=== PATIENT | female | born 1965 | race Caucasian/White ===

== ENCOUNTER 2016-05-07 21:14 | Inpatient (IN) | payer BC ==
[~2016-05-07] VITALS: Ht 160 cm; Wt 69.0 kg
[2016-05-07 02:40] VITALS: BP 102/69
[~2016-05-07 21:14] MED LIST: CLON0.5T PO; LEVO25TA2 PO; METF500T4 PO; METH20TA PO; OXYB5TAB7 PO; SIMV20TA3 PO
[2016-05-07] MEDS ORDERED: FENTANYL PF 100 MCG/2 ML VIAL. IV PRN (22:30)
[2016-05-07 22:33] LABS: BASO # 0.2 x10^3/uL (0.0-0.2); BASO % 1 % (0-3); EOS % 2 % (0-3); HEMATOCRIT 34.8 % (36.0-47.0); HEMOGLOBIN 11.4 g/dL (12.0-15.5); LYMPH # 4.3 x10^3/uL (1.0-4.8); LYMPH % 35 % (24-48); MEAN CORPUSCULAR HEMOGLOBIN 29 pg (25-35); MEAN CORPUSCULAR HGB CONC 33 g/dL (31-37); MEAN CORPUSCULAR VOLUME 87 fL (79-100); MONO % 6 % (0-9); NEUT % 56 % (31-73); PLATELET COUNT 351 x10^3/uL (140-400); RED BLOOD COUNT 3.99 x10^6/uL (3.50-5.40); RED CELL DISTRIBUTION WIDTH 15.3 % (11.5-14.5); WHITE BLOOD COUNT 12.4 x10^3/uL (4.0-11.0)
--- NOTE | 2016-05-07 22:39 | PHYS DOC ---
Past Medical History Past Medical History: Bronchitis, High Cholesterol, Hypothyroid Past Surgical History: Cholecystectomy, Hysterectomy Additional Past Surgical Histo: 3 BREAST LUMPS REMOVED, DEVIATED SEPTUM REPAIR , KNEE SURGERY Additional Information: PPD Alcohol Use: None Drug Use: None Adult General Chief Complaint Chief Complaint: CHEST PAIN HPI HPI Patient is a 50 year old female who presents with complaint of chest pain. Patient states that her symptoms started approximately 1-1/2 hours prior to arrival. Patient states that 2 days ago she had an episode of substernal chest pain that was atypical from her normal GERD symptoms. Patient states that the pain was sharp and came on at rest. The patient states that the pain resolved spontaneously but she did take an enteric-coated aspirin at that time. The patient states that she started having sudden onset of lightheadedness and dizziness approximately 1.5 hours prior to arrival. The patient states that this is accompanied by shortness of breath, nausea, and diaphoresis. Patient states that she developed pain in the middle of her shoulder blades that radiates now into her chest. The patient states that her symptoms are still present at this time. The patient has history of hypercholesterolemia, borderline type 2 diabetes mellitus, and significant family history for coronary artery disease. Patient also states that she has history of tobacco use with over 20 pack years reported. Patient has not had any recent illnesses or fever. Patient states that her pain has improved but is still present at this time. Patient states that she does not know what number to give her pain but that it was severe earlier and better at this time. Review of Systems Review of Systems Constitutional: Diaphoresis, Denies fever or chills [] Eyes: Denies change in visual acuity, redness, or eye pain [] HENT: Denies nasal congestion or sore throat [] Respiratory: Shortness of breath [] Cardiovascular: Chest pain [] GI: Denies abdominal pain, nausea, vomiting, bloody stools or diarrhea [] : Denies dysuria or hematuria [] Musculoskeletal: Denies back pain or joint pain [] Integument: Denies rash or skin lesions [] Neurologic: Denies headache, focal weakness or sensory changes [] Current Medications Current Medications Current Medications Medications (Trade) Dose Ordered Sig/Erbecca Start Time Stop Time Status Last Admin Dose Admin Aspirin (Children'S Aspirin) 243 mg 1X ONCE 05/07/16 23:00 05/07/16 23:01 DC 05/07/16 22:50 243 MG Fentanyl Citrate 50 mcg 50 mcg PRN Q15MIN PRN 05/07/16 22:30 05/08/16 22:29 Multi-Ingredient Mouthwash/Gargle (Gi Cocktail Single Dose) 15 ml 1X ONCE 05/07/16 23:00 05/07/16 23:01 DC 05/07/16 22:49 15 ML Ondansetron HCl (Zofran) 4 mg 1X ONCE 05/07/16 23:00 05/07/16 23:01 DC Sodium Chloride (Iv Sodium Chloride 0.9% 1000ml Bag) 1,000 ml @ 1,000 mls/hr Q1H 05/07/16 23:00 05/07/16 23:59 DC 05/07/16 22:49 1,000 MLS/HR Allergies Allergies Allergies Coded Allergies Type Severity Reaction Last Updated Verified aspirin Allergy Intermediate NOSEBLEED 05/07/16 Yes Physical Exam Physical Exam Constitutional: Well developed, well nourished, no acute distress, non-toxic appearance. [] HENT: Normocephalic, atraumatic, bilateral external ears normal, oropharynx moist, no oral exudates, nose normal. [] Eyes: PERRLA, EOMI, conjunctiva normal, no discharge. [] Neck: Normal range of motion, no tenderness, supple, no stridor. [] Cardiovascular:Heart rate regular rhythm, no murmur [] Lungs & Thorax: Bilateral breath sounds clear to auscultation [] Abdomen: Bowel sounds normal, soft, no tenderness, no masses, no pulsatile masses. [] Skin: Warm, dry, no erythema, no rash. [] Back: No tenderness, no CVA tenderness. [] Extremities: No tenderness, no cyanosis, no clubbing, ROM intact, no edema. [] Neurologic: Alert and oriented X 3, normal motor function, normal sensory function, no focal deficits noted. [] Current Patient Data Vital Signs Vital Signs Date Time Temp Pulse Resp B/P Pulse Ox O2 Delivery O2 Flow Rate FiO2 05/07/16 21:20 97.6 79 20 97/63 100 Room Air 97.6 Lab Values Laboratory Tests Test 05/07/16 21:30 White Blood Count 12.4x10^3/uL (4.0-11.0) H Red Blood Count 3.99x10^6/uL (3.50-5.40) Hemoglobin 11.4g/dL (12.0-15.5) L Hematocrit 34.8% (36.0-47.0) L Mean Corpuscular Volume 87fL (79-100) Mean Corpuscular Hemoglobin 29pg (25-35) Mean Corpuscular Hemoglobin Concent 33g/dL (31-37) Red Cell Distribution Width 15.3% (11.5-14.5) H Platelet Count 351x10^3/uL (140-400) Neutrophils (%) (Auto) 56% (31-73) Lymphocytes (%) (Auto) 35% (24-48) Monocytes (%) (Auto) 6% (0-9) Eosinophils (%) (Auto) 2% (0-3) Basophils (%) (Auto) 1% (0-3) Neutrophils # (Auto) 6.9x10^3uL (1.8-7.7) Lymphocytes # (Auto) 4.3x10^3/uL (1.0-4.8) Monocytes # (Auto) 0.7x10^3/uL (0.0-1.1) Eosinophils # (Auto) 0.3x10^3/uL (0.0-0.7) Basophils # (Auto) 0.2x10^3/uL (0.0-0.2) Sodium Level 134mmol/L (136-145) L Potassium Level 3.6mmol/L (3.5-5.1) Chloride Level 98mmol/L (98-107) Carbon Dioxide Level 22mmol/L (21-32) Anion Gap 14 (6-14) Blood Urea Nitrogen 18mg/dL (7-20) Creatinine 1.2mg/dL (0.6-1.0) H Estimated GFR (Cockcroft-Gault) 47.6 Glucose Level 150mg/dL (70-99) H Calcium Level 8.9mg/dL (8.5-10.1) Magnesium Level 1.3mg/dL (1.8-2.4) L Total Bilirubin 0.2mg/dL (0.2-1.0) Direct Bilirubin < 0.1mg/dL (0.0-0.2) Aspartate Amino Transferase (AST) 18U/L (15-37) Alanine Aminotransferase (ALT) 15U/L (14-59) Alkaline Phosphatase 72U/L (46-116) Creatine Kinase 51U/L (26-192) Creatine Kinase MB (Mass) < 0.5ng/mL (0.0-3.6) Creatine Kinase MB Relative Index % (0-4) Troponin I Quantitative < 0.017ng/mL (0.000-0.055) BX-Ykx-Y-Type Natriuretic Peptide 86pg/mL (0-124) Total Protein 7.3g/dL (6.4-8.2) Albumin 3.5g/dL (3.4-5.0) Lipase 197U/L (73-393) Laboratory Tests 05/07/16 21:30 Laboratory Tests 05/07/16 21:30 EKG EKG Interpreted by me: Heart rate 71, sinus rhythm, normal intervals, normal axis, no acute ST/T-wave abnormalities present [] Radiology/Procedures Radiology/Procedures One view AP chest x-ray interpreted by me: No infiltrates, no effusions, normal cardiac silhouette [] Course & Med Decision Making Course & Med Decision Making Pertinent Labs and Imaging studies reviewed. (See chart for details) Patient's troponin was negative. The patient has a JEISON score of 3. Patient treated with aspirin and GI cocktail. The patient will need admission to the hospital for rule out of myocardial infarction. I spoke with Dr. Pierce who accepted care patient in hospital. Dragon Disclaimer Dragon Disclaimer This electronic medical record was generated, in whole or in part, using a voice recognition dictation system. Departure Departure Impression: Primary Impression: Chest pain Additional Impressions: Hyperlipidemia History of tobacco use Family history of myocardial infarction Disposition: ADMITTED INPATIENT Admitting Physician: Greg Pierce Condition: STABLE Referrals: BORIS HOLDER APRN (PCP) Problem Qualifiers Primary Impression: Chest pain Chest pain type: unspecified Qualified Code: R07.9 - Chest pain, unspecified Additional Impressions: Hyperlipidemia Hyperlipidemia type: unspecified Qualified Code: E78.5 - Hyperlipidemia, unspecified KARLO PETERSEN MD May 07, 2016 22:39
[2016-05-07 22:43] LABS: ANION GAP 14 (6-14); BLOOD UREA NITROGEN 18 mg/dL (7-20); CALCIUM 8.9 mg/dL (8.5-10.1); CARBON DIOXIDE 22 mmol/L (21-32); CHLORIDE 98 mmol/L (98-107); CREATININE 1.2 mg/dL (0.6-1.0); GFR 47.6; GLUCOSE 150 mg/dL (70-99); POTASSIUM 3.6 mmol/L (3.5-5.1); SODIUM 134 mmol/L (136-145)
[2016-05-07 22:49] LABS: ALBUMIN 3.5 g/dL (3.4-5.0); ALK PHOS 72 U/L (46-116); ALT (SGPT) 15 U/L (14-59); AST (SGOT) 18 U/L (15-37); DIRECT BILIRUBIN < 0.1 mg/dL (0.0-0.2); MAGNESIUM 1.3 mg/dL (1.8-2.4); TOTAL BILIRUBIN 0.2 mg/dL (0.2-1.0); TOTAL PROTEIN 7.3 g/dL (6.4-8.2)
[2016-05-07 22:59] LABS: CKMB MASS < 0.5 ng/mL (0.0-3.6); CREATINE KINASE 51 U/L (26-192)
[2016-05-07] MEDS ORDERED: ONDANSETRON PF 4 MG/2 ML VIAL. IV ONE (23:00)
[2016-05-07] MEDS ORDERED: IV NORMAL SALINE 1000ML BAG 1,000 ML IV SCH (23:00)
[2016-05-07] MEDS ORDERED: LIDO:MAALOX:DONNATAL 1:1:1 15 ML SINGLE DOSE SWSW ONE (23:00)
[2016-05-07] MEDS ORDERED: ASPIRIN 81 MG TAB.CHEW PO ONE (23:00)
[2016-05-08] VITALS (7 sets, daily range): BP systolic 97–125; BP diastolic 56–78
[2016-05-08] MEDS ORDERED: FENTANYL PF 100 MCG/2 ML VIAL. IV PRN (00:15)
[2016-05-08] MEDS ORDERED: ONDANSETRON PF 4 MG/2 ML VIAL. IV PRN (00:15)
[2016-05-08] MEDS: IV NORMAL SALINE 1000ML BAG 1,000 ML IV SCH ×3 (05:51→20:19)
--- NOTE | 2016-05-08 06:41 | EKG ---
[facility] [address] [place] [address] Test Date: 2016-05-07 Test Time: 21:25:33 Pat Name: SAIDA POPE Department: Room: 4 Gender: F Senior [employer] Developer: : 1965 Requested By: KARLO PETERSEN Order Number: [id number] Reading MD: Joaquina Ramirze Measurements Intervals Farina Rate: 71 P: 40 SC: 150 QRS: 36 QRSD: 98 T: 26 QT: 402 QTc: 442 Interpretive Statements SINUS RHYTHM NORMAL EKG RI6.01 Unconfirmed report No previous ECG available for comparison Electronically Signed On 05-13-2016 14:31:08 TECHNICAL DIRECTOR by Joaquina Ramirez
--- NOTE | 2016-05-08 08:05 | RAD ---
Indication chest pain. A single view the chest was obtained. No prior imaging of the chest is available. The heart size is normal. The lungs are clear. Pulmonary vasculature is normal. An acute finding in the chest is not apparent. IMPRESSION: No acute finding apparent in the chest
--- NOTE | 2016-05-08 09:04 | PDOC2 ---
CARDIAC CONSULT DATE OF CONSULT Date of Consult DATE: 05/08/16 TIME: 08:57 REASON FOR CONSULT Reason for Consult: Chest pain REFERRING PHYSICIAN Referring Physician: Kevon SOURCE Source: Chart review, Patient HISTORY OF PRESENT ILLNESS HISTORY OF PRESENT ILLNESS This is a pleasant 50 yo female admitted for complains of chest pain and dizziness. Reports that in the last 3 months she has been having occasional achy chest pain and thinking it was her GERD. Last night she started having mid back pain between her shoulder blades then went to her midchest, non radiating and this occurred at rest, achy in consistency lasting about an hour. During that same time she was feeling diaphoretic and clammy and thought her BG was low but it was 137. She also was having FERRELL which started to her left parietal then moved to occiput then to her crown. She was positive for muffled hearing and blurred vision. Her friends told her that she was slurring her speech as well. She was also nauseated at that time but no vomiting. Denies any SOA or MORRIS. Denies any past CAD but her parents are significant for it. She does however continues to smoke tobacco and currently takes premarin weekly as she is trying to wean herself of it. Denies daily heartburn. 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 Denies any excessive caffeinated beverages and no recent long distance travels. Denies any VTE, syncope, nor CVA. PAST MEDICAL HISTORY Cardiovascular: Hyperlipidemia, Other ("skip beats") Pulmonary: Asthma CENTRAL NERVOUS SYSTEM: Other (FLOORING MECHANIC hypersomnia (on ritalin)) GI: GERD (recent EGD/colonoscopy 10/2015 normal per pt. ) Heme/Onc: Other (ITP as a child causing epistaxis with last noted when she was 5 yo) Hepatobiliary: No pertinent hx Psych: No pertinent hx Musculoskeletal: low back pain, Osteoarthritis, Other (HRT) Infectious disease: No pertinent hx ENT: Allergic Rhinitis Renal/: Urinary Incontinence Endocrine: Diabetes (2), Hypothyroidism Dermatology: No pertinent hx PAST SURGICAL HISTORY Past Surgical History: Arthroscopy (right knee), Cholecystectomy (laparoscopic) , Hysterectomy (partial; uterine ablation; wisdom tooth extraction; eye surgery) , Other (right breast lump removal; deviated septum repair) FAMILY HISTORY Family History: Coronary Artery Disease (mother and father), Heart Disease ( mother and father) SOCIAL HISTORY Smoke: 1 pack per day ALCOHOL: none Drugs: None Lives: with Family CURRENT MEDICATIONS CURRENT MEDICATIONS Current Medications Medications (Trade) Dose Ordered Sig/Rebecca Route PRN Reason Start Time Stop Time Status Last Admin Dose Admin Aspirin 243 mg 243 mg 1X ONCE PO 05/07/16 23:00 05/07/16 23:01 DC 05/07/16 22:50 Sodium Chloride (Iv Sodium Chloride 0.9% 1000ml Bag) 1,000 ml @ 1,000 mls/hr Q1H IV 05/07/16 23:00 05/07/16 23:59 DC 05/07/16 22:49 Multi-Ingredient Mouthwash/Gargle 15 ml 15 ml 1X ONCE SWSW 05/07/16 23:00 05/07/16 23:01 DC 05/07/16 22:49 Sodium Chloride (Iv Sodium Chloride 0.9% 1000ml Bag) 1,000 ml @ 100 mls/hr Q10H IV 05/08/16 00:07 05/09/16 00:06 05/08/16 05:51 ROS Review of System 14 point ROS evaluated with pertinent positives noted per HPI PHYSICAL EXAM General: Alert, Oriented X3, Cooperative, No acute distress HEENT: Atraumatic, Mucous membr. moist/pink Heart: Regular rate, Normal S1, Normal S2, Other (2/6 systolic murmur to DIMAS border) Abdomen: Soft, No tenderness Extremities: No cyanosis, No edema, Normal pulses Skin: No breakdown, No significant lesion Neuro: Normal speech, Sensation intact Psych/Mental Status: Mental status NL, Mood NL MUSCULOSKELETAL: Osteoarthritic changes both hands VITALS VITALS Vital Signs Date Time Temp Pulse Resp B/P Pulse Ox O2 Delivery O2 Flow Rate FiO2 05/08/16 07:00 97.9 69 18 99/56 97 Room Air 97.9 LABS Lab: Laboratory Tests Test 05/07/16 21:30 05/08/16 06:31 White Blood Count 12.4x10^3/uL (4.0-11.0) Red Blood Count 3.99x10^6/uL (3.50-5.40) Hemoglobin 11.4g/dL (12.0-15.5) Hematocrit 34.8% (36.0-47.0) Mean Corpuscular Volume 87fL (79-100) Mean Corpuscular Hemoglobin 29pg (25-35) Mean Corpuscular Hemoglobin Concent 33g/dL (31-37) Red Cell Distribution Width 15.3% (11.5-14.5) Platelet Count 351x10^3/uL (140-400) Neutrophils (%) (Auto) 56% (31-73) Lymphocytes (%) (Auto) 35% (24-48) Monocytes (%) (Auto) 6% (0-9) Eosinophils (%) (Auto) 2% (0-3) Basophils (%) (Auto) 1% (0-3) Neutrophils # (Auto) 6.9x10^3uL (1.8-7.7) Lymphocytes # (Auto) 4.3x10^3/uL (1.0-4.8) Monocytes # (Auto) 0.7x10^3/uL (0.0-1.1) Eosinophils # (Auto) 0.3x10^3/uL (0.0-0.7) Basophils # (Auto) 0.2x10^3/uL (0.0-0.2) Sodium Level 134mmol/L (136-145) Potassium Level 3.6mmol/L (3.5-5.1) Chloride Level 98mmol/L (98-107) Carbon Dioxide Level 22mmol/L (21-32) Anion Gap 14 (6-14) Blood Urea Nitrogen 18mg/dL (7-20) Creatinine 1.2mg/dL (0.6-1.0) Estimated GFR (Cockcroft-Gault) 47.6 Glucose Level 150mg/dL (70-99) Calcium Level 8.9mg/dL (8.5-10.1) Magnesium Level 1.3mg/dL (1.8-2.4) Total Bilirubin 0.2mg/dL (0.2-1.0) Direct Bilirubin < 0.1mg/dL (0.0-0.2) Aspartate Amino Transf (AST/SGOT) 18U/L (15-37) Alanine Aminotransferase (ALT/SGPT) 15U/L (14-59) Alkaline Phosphatase 72U/L (46-116) Creatine Kinase 51U/L (26-192) Creatine Kinase MB (Mass) < 0.5ng/mL (0.0-3.6) Creatine Kinase MB Relative Index % (0-4) Troponin I Quantitative < 0.017ng/mL (0.000-0.055) < 0.017ng/mL (0.000-0.055) LE-Bqn-Z-Type Natriuretic Peptide 86pg/mL (0-124) Total Protein 7.3g/dL (6.4-8.2) Albumin 3.5g/dL (3.4-5.0) Lipase 197U/L (73-393) ASSESSMENT/PLAN ASSESSMENT/PLAN 1. Chest pain: 2. HLP 3. Presyncope/FERRELL with TIA features 4. HRT with tobaccoism 5. FLOORING MECHANIC hypersomnia 6. Hx of ITP as a child, no further recurrence since 5 yo 7. Hypothyroidism 8. Hypomagnesemia 9. Prerenal azotemia Recommendation 1. Continue with IVF, replace Mg per repeat level. Repeat BMP 2. MPI/TTE today 3. TSH, lipid panel. 4. Pretest CAD probability 24%. Possible vasopasm is possible with ritalin use. Hold for now. 5. Noncontrast Head CT 6. Consider eliminating HRT and consider SSRI given her tobaccoism 7. smoking cessation, with continued secondary prevention measures. Problems: CATHLEEN RICARDO APRN May 08, 2016 09:04
[2016-05-08 09:44] LABS: CALCIUM 8.4 mg/dL (8.5-10.1); CREATININE 0.9 mg/dL (0.6-1.0); GFR 66.3; MAGNESIUM 1.5 mg/dL (1.8-2.4); POTASSIUM 4.2 mmol/L (3.5-5.1)
[2016-05-08 09:57] LABS: CHOLESTEROL/HDL RATIO 3.9
[2016-05-08] MEDS ORDERED: REGADENOSON 0.4 MG/5 ML DISP.SYRIN. IV ONE (10:45)
--- NOTE | 2016-05-08 11:14 | RAD ---
Indication headache and slurred speech. Noncontrast images of the head were obtained. No prior CT imaging of the head is available. Note is made of an MRI examination 11/24/2013. The calvarium appears unremarkable. The visualized paranasal sinuses appear normal. There is no subdural or epidural hematoma. The ventricles and sulci are normal. No mass or midline shift is seen. There is no hemorrhage. Acute intracranial finding is not seen. IMPRESSION: Normal study PQRS Compliance Statement: One or more of the following individualized dose reduction techniques were utilized for this examination: 1. Automated exposure control 2. Adjustment of the mA and/or kV according to patient size 3. Use of iterative reconstruction technique
[2016-05-08] MEDS ORDERED: CLONAZEPAM 0.5 MG TABLET PO SCH (12:00)
[2016-05-08] MEDS ORDERED: MAGNESIUM SULFATE 2GM 50 ML IV ONE (12:00)
--- NOTE | 2016-05-08 13:33 | RAD ---
APPROVED REPORT Test Type: Pharmacological Stress Nurse/Tech: Mari Paulino R.N. Test Indications: chest pain Cardiac History: family hx Medications: see ehr Medical History: see ehr Resting ECG: SR Resting Heart Rate: 70 bpm Resting Blood Pressure: 108/68mmHg Pretest Chest Pain: No chest pain Nurse/Tech Notes lungs cta, heart tones regular, good radial pulse Consent: The procedure was explained to the patient in lay terms. Informed consent was witnessed. Urbano eout was entered into [employer]. History and Stress Test performed by Mari Paulino R.N. Pharm. Details Pharmacologic stress testing was performed using 0.4mg per 5ml of regadenoson given intravenously ove r 7-10 seconds. Stress Symptoms No chest pain or symptoms.Nausea POST EXERCISE Reason for Termination: Infusion complete Target HR: No Max HR: 108 bpm Max Blood Pressure: 120/61mmHg Chest Pain: No. Arrhythmia: Yes. PACs ST Change: No. INTERPRETATION Stress EKG Conclusion: Baseline EKG showed sinus rhythm. No ischemic changes at peak stress. No arr hythmias. Imaging Protocol IMAGE PROTOCOL: Rest Tc-99m/stress Tc-99m 1 day Rest: Stress: Viability: Radiopharm.Tc99m IwgflmircHk94l Sestamibi Dose10.5mCi 34mCi Duration 15min. 10min. Img Date 05/08/2016 05/08/2016 Inj-Img Nkrm65czm. 60min. Rest Admin Site:IV - Left AntecubitalAdministrator:RT Dimitrios (R)(N) Stress Admin Site: IV - Left AntecubitalAdministrator: RT Dimitrios (R)(N) STRESS DATA End Diast. Vol.74.0mlAv. Heart Rate72.0bpm End Syst. Vol.12.0mlCO Index BSA0.0L/min Myocardial Imnm336.0gEject. Dwhqtuzq24.0% Stress Rates Pk. Fill Rate2.52EDV/secLVtime Pk. Fill 123.19msec Pk. Empty Rate3.97ESV/secLVtime Pk. Iaxox788.35msec 04/03 Pk. Fill1.73EDV/sec Stress Scores Regional WT0.00Summed WT0.00 Regional WM0.00Summed WM3.00 Study quality was good. Left Ventricular size was Normal at Rest and Stress. Lung uptake was Normal. Left Ventricular ejection fraction is 84%. The rest and stress images show normal perfusion, normal contraction and thickening. LV Perf. Quant 17 Seg. SSS0.00 17 Seg. SRS1.00 17 Seg. SDS0.00 Stress Defect Extent (% LAD)0.00Rest Defect Extent (% LAD)3.10Rev. Defect Extent (% LAD)0.00 Stress Defect Extent (% LCX) 0.00Rest Defect Extent (% LCX)0.00Rev. Defect Extent (% LCX)0.00 Stress Defect Extent (% RCA)0.00Rest Defect Extent (% RCA)0.00Rev. Defect Extent (% RCA)0.00 Stress Defect Extent (% FORREST)0.00Rest Defect Extent (% FORREST)1.10Rev. Defect Extent (% FORREST)0.00 Conclusion 1. Regadenoson cardioisotope stress test did not show any evidence of ischemia or infarct. 2. Normal left ventricular systolic function with ejection fraction calculated at 84%. 3. Low risk for cardiac events.
--- NOTE | 2016-05-08 16:17 | CARD ---
APPROVED REPORT EXAM: Two-dimensional and M-mode echocardiogram with Doppler and color Doppler. Other Information Quality : GoodHR: 72bpm Rhythm : NSR INDICATION Chest Pain 2D DIMENSIONS RVDd2.9 (2.9-3.5cm)Left Atrium(2D)3.2 (1.6-4.0cm) IVSd1.0 (0.7-1.1cm)Aortic Root(2D)3.2 (2.0-3.7cm) LVDd4.6 (3.9-5.9cm)LVOT Diameter2.2 (1.8-2.4cm) PWd0.8 (0.7-1.1cm)LVDs2.8 (2.5-4.0cm) FS (%) 39.3 %SV66.4 ml LVEF(%)69.9 (>50%) Aortic Valve AoV Peak Roge.146.8cm/sAoV VTI26.2cm AO Peak GR.8.6mmHgLVOT Peak Roge.125.5cm/s AO Mean GR.3mmHgAVA (VMAX)3.11cm2 Mitral Valve MV E Hxjsixnl371.6cm/sMV E Peak Gr.5mmHg MV DECEL [id number] A Mzqzuyso94.2cm/s E/A Ratio1.0MV A Iffkxbow06iq Pulmonary Valve PV Peak Txfruvaj35.6cm/s Tricuspid Valve TR P. Rghxrqzj300zi/sTR Peak Gr.24mmHg Pulmonary Vein S1 Vgxlkakc52.9cm/sD2 Qifwdzyu46.9cm/s PVa qermohhd14mhju LEFT VENTRICLE The left ventricle is normal size. There is normal left ventricular wall thickness. The left ventricu lar systolic function is normal and the ejection fraction is within normal range. The Ejection Fracti on is 65-70%. There is normal LV segmental wall motion. The left ventricular diastolic function and f illing is normal for age. RIGHT VENTRICLE The right ventricle is normal size. There is normal right ventricular wall thickness. The right ventr icular systolic function is normal. ATRIA The left atrium size is normal. The right atrium size is normal. The interatrial septum is intact wit h no evidence for an atrial septal defect or patent foramen ovale as noted on 2-D or Doppler imaging. AORTIC VALVE The aortic valve is normal in structure and function. Doppler and Color Flow revealed no significant aortic regurgitation. There is no significant aortic valvular stenosis. MITRAL VALVE The mitral valve is normal in structure and function. There is no evidence of mitral valve prolapse. There is no mitral valve stenosis. Doppler and Color Flow revealed no mitral valve regurgitation note d. TRICUSPID VALVE Doppler and Color Flow revealed trace tricuspid regurgitation. The pulmonary artery systolic pressure is estimated at 29 mmHg. There is no pulmonary hypertension. PULMONIC VALVE Doppler and Color Flow revealed trace pulmonic valvular regurgitation. There is no pulmonic valvular stenosis. GREAT VESSELS The aortic root is normal in size. The ascending aorta is normal in size. The IVC is normal in size a nd collapses >50% with inspiration. PERICARDIAL EFFUSION There is no evidence of significant pericardial effusion. Critical Notification Critical Value: No <Conclusion> The left ventricular systolic function is normal and the ejection fraction is within normal range. The Ejection Fraction is 65-70%. There is normal LV segmental wall motion. Doppler and Color Flow revealed trace tricuspid regurgitation. The pulmonary artery systolic pressure is estimated at 29 mmHg. There is no pulmonary hypertension.
[2016-05-08] MEDS: METFORMIN 500 MG TABLET. PO SCH (16:39)
[2016-05-08] MEDS: OXYBUTYNIN CHLORIDE 5 MG TABLET PO SCH (20:20)
[2016-05-08] MEDS ORDERED: SIMVASTATIN 20 MG TABLET PO SCH (21:00)
[2016-05-08] MEDS ORDERED: CLONAZEPAM 1 MG TABLET PO SCH (21:00)
--- NOTE | 2016-05-08 21:02 | ACF ---
Admission Forms Criteria CARDIOLOGY GRG Clinical Indications for Admission to Inpatient Care ( Place 'X' for any and all applicable criteria): Hospital admission is needed for appropriate care of the patient because of ANY ONE of the following (1): [ ] I. Hemodynamic instability as indicated by ALL of the following (1)(2)(3) (4)(5) [ ]a) Vital signs or other findings not as expected for chronic patient condition or baseline [ ]b) Instability indicated by ANY ONE of the following: [ ]i) Hypotension [ ]ii) Symptomatic Tachycardia unresponsive to treatment ( e.g., analgesia, fluids, sedation as indicated) [ ]iii) Inadequate perfusion indicated by ANY ONE of the following: [ ] 1) Lactic acidosis (> 2 mmol/L) [ ] 2) New abnormal capillary refill (> 3 seconds) [ ] 3) Reduced urine output [ ] 4) New altered mental status [ ]iv) Orthostatic vital sign changes unresponsive to treatment (e.g., fluids) [ ]v) IV inotropic or vasopressor medication required to maintain adequate blood pressure or perfusion [ ] II. Severe heart failure as indicated by ANY ONE of the following(17)(18) [ ]a) Respiratory distress [ ]b) Hypotension [ ]c) Anasarca (refractory to outpatient therapy) [ ]d) Cardiac arrhythmias of immediate concern [ ]e) Myocardial ischemia [ ] III. Cardiac arrhythmias or findings of immediate concern indicated by ANY ONE of the following (19)(20): [ ] a) Heart rhythms that are inherently dangerous or unstable indicated by ANY ONE of the following (21)(22)(23): [ ] i) Resuscitated ventricular fibrillation or cardiac arrest [ ] ii) Ventricular escape rhythm [ ] iii) Sustained ventricular tachycardia (30 seconds or more of ventricular rhythm at greater than 100 beats per minute) [ ] iv) Nonsustained ventricular tachycardia and ANY ONE of the following: [ ] 1) Suspected cardiac ischemia as cause or consequence of ventricular tachycardia [ ] 2) In setting of acute myocarditis [ ] b) Unstable cardiac conduction defects indicated by ANY ONE of the following(23)(24)(25) [ ] i) Type II second-degree atrioventricular block [ ]ii) Third-degree atrioventricular block [ ]iii) New-onset left bundle branch block with suspected myocardial ischemia [ ]c) Any heart rhythm and ANY ONE of the following (21)(22)(26)(27) (28) [ ] i) Continuous long-term ECG monitoring needed (e.g., initiation of drug requiring monitoring for more than 24 hours) [ ] ii) Patient has automatic implanted cardioverter defibrillator that is repeatedly firing, malfunctioning, or in need of immediate adjustment of settings beyond the scope of ambulatory or observation care [ ]d) Heart rhythms of concern due to ANY ONE of the following: [ ] i) Hypotension [ ] ii) Respiratory distress [ ] iii) Association with other significant symptoms (e.g., bradycardia with syncope or ongoing dizziness, supraventricular tachycardia with chest pain (14)(15)(17) [ ] IV. Monitoring for cardiac contusion beyond the scope of observation care needed [A](30)(31)(32) [ ] V. Surgical or device complication (e.g., valve replacement complication , pacemaker dysfunction) (35)(41)(44)(45)(46) [ ] . Inpatient palliative care needed. [B](49) Also use Inpatient Palliative Care Criteria [ ] VII. Nonbacterial thrombotic (marantic) endocarditis (36)(43)(47)(48) [X] VIII. Cardiology condition, symptom, or finding for which emergency and observation care has failed or are not considered appropriate. [ ] IX. Acute valvular disease requiring inpatient as indicated by ANY ONE of the following (41) [ ]a) Acute valvular regurgitation (42) [ ]b) Noninfectious valvulitis (43) [ ]c) Obstructive valve thrombosis [ ]d) Paravalvular leak [ ]e) Other significant valvular disorder remaining after emergency or observation level of care (as appropriate) [ ]X. Pericardial disease requiring inpatient treatment as indicated by ANY ONE of the following (33)(34)(35)(36)(37) [ ]a) Suspected tamponade (38)(39)(40) [ ]b) Hemopericardium [ ]c) Other significant pericardial disorder remaining after emergency or observation level of care (as appropriate) [ ] XI. Cardiac ischemia beyond scope of emergency and observation care. [ ] XII. Hypertension requiring inpatient treatment as indicated by ANY ONE of the following (6)(7)(8) [ ]a) SBP greater than 220 mm Hg or DBP greater than 120 mmHg despite treatment [ ]b) SBP greater than 140 mm Hg or DBP greater than 100 mm Hg with evidence of acute end organ damage as indicated by ANY ONE of the following [ ] i) Encephalopathy [ ] ii) Acute renal failure as indicated by new onset of ANY ONE of the following (9)(10)(11)(12)(13) [ ]1) 3-fold rise in serum creatinine from baseline [ ]2) Serum creatinine greater than 4 mg/dL ( 354 micromoles/L) with acute rise greater than 0.5 mg/dL (44.2 micromoles/L) [ ]3) Reduction of more than 75% in estimated glomerular filtration rate from baseline [ ]4) Estimated glomerular filtration rate less than 35 mL/min/1.73m2 (0.59 mL/sec/1.73m2) in child up to 18 years of age [ ]5) Cessation of urine output indicated by ALL of the following [ ]A. Adequate volume status [ ]B. Inadequate urine output as indicated by ANY ONE of the following [ ]a. Urine output less than 0.3 mL/kg/hr for 24 hours [ ]b. Anuria (urine output less than 0.1 mL/kg/hr) for 12 hours [ ] iii) Aortic dissection [ ] iv) Myocardial Ischemia [ ] v) Left ventricular heart failure [ ]vi) Retinal Hemorrhage [ ]vii) Other significant finding [ ]c) Hypertension in child requiring inpatient treatment as indicated by ALL of the following(14)(15)(16) [ ] i) Outpatient treatment not effective, not available, or not appropriate [ ]ii) SBP or DBP greater than 95th percentile for age [ ]iii) Evidence of acute end organ damage as indicated by ANY ONE of the following [ ]1) Altered mental status [ ]2) Acute renal failure as indicated by new onset of ANY ONE of the following(9)(10)(11)(12)(13) [ ]A. 3-fold rise in serum creatinine from baseline [ ]B. Serum creatinine greater than 4 mg/dL (354 micromoles/L) with acute rise greater than 0.5 mg/dL (44.2 micromoles/L) [ ]C. Reduction of more than 75% in estimated glomerular filtration rate from baseline [ ]D. Estimated glomerular filtration rate less than 35 mL/min/1.73m2 (0.59 mL/sec/1.73m2) in child up to 18 years of age [ ]E. Cessation of urine output indicated by ALL of the following [ ]a. Adequate volume status [ ]b. Inadequate urine output as indicated by ANY ONE of the following [ ]i) Urine output less than 0.3 mL/kg/hr for 24 hours [ ]ii) Anuria ( urine output less than 0.1 mL/kg/hr) for 12 hours [ ]3) Severe headache [ ]4) Visual disturbance [ ]5) Retinal hemorrhage [ ]6) Other significant finding [ ]XIII. Complications of transplanted heart indicated by ANY ONE of the following(61): [ ]a) Acute graft rejection requiring inpatient management (eg, intravenous immunosuppression)(62)(63) [ ]b) Acute graft heart failure indicated by ANY ONE of the following(64): [ ]i) Hemodynamic instability [ ]ii) Cardiac arrhythmias of immediate concern [ ]iii) Pulmonary edema that is very severe (eg, mechanical ventilation needed, imminent or likely, need for 100% oxygen to keep oxygen saturation above 90%) [ ]iv) Pulmonary edema that is persistent as indicated by ALL of the following: [ ]1) New need for oxygen therapy to keep oxygen saturation above 90% (or increased FiO2 need from baseline) [ ]2) Has not improved sufficiently with emergency department or observation care IV diuretics or other heart failure treatments[E] [ ]v) Altered mental status that is severe or persistent [ ]vi) Increased creatinine (new on laboratory test) with reduction of more than 50% in estimated glomerular filtration rate from baseline [ ]vii) Progressively (ongoing) rising creatinine (known from past laboratory test) with reduction of more than 25% in estimated glomerular filtration rate from baseline [ ]viii) Acute renal failure [ ]ix) Acute peripheral ischemia (eg, examination shows pulseless, cool, mottled, or cyanotic extremity) [ ]x) Pulmonary artery catheter monitoring needed [ ]xi) Other sign or symptom of heart failure requiring inpatient treatment (ie, too severe or not responsive to outpatient and observation care treatment) [ ]c) Infection requiring inpatient management (eg, Hemodynamic instability, need for intravenous antimicrobial treatment)(66)(67)(68)(69)(70) [ ]d) Cardiac allograft vasculopathy requiring inpatient management ( eg evidence of cardiac ischemia)(71) [ ]e) Other complication of transplanted heart (eg, stroke, severe pulmonary hypertension, severe valvular dysfunction) requiring inpatient management(72) The original [facility] content created by [facility] has been revised. The portions of the content which have been revised are identified through the use of italic text or in bold, and [facility] has neither reviewed nor approved the modified material. All other unmodified content is copyright [facility]. Please see references footnoted in the original [facility] edition 2016 Admission Criteria Met?: Yes ELROY DA SILVA May 08, 2016 21:02
--- NOTE | 2016-05-08 23:05 | HP ---
ADMIT DATE: 05/08/2016 CHIEF COMPLAINT: Chest pain. HISTORY OF PRESENT ILLNESS: The patient is a pleasant 50-year-old female, who presents with chest pain. She smokes. She has a strong family history of coronary disease. She also has hyperlipidemia and borderline diabetes. She rates her symptoms 9/10. It has been coming on for a couple of days. I have discussed the case with the ER physician. We are going to go ahead and admit the patient and consult Cardiology. PAST MEDICAL HISTORY: Bronchitis, hypertension, hyperlipidemia, cholecystectomy, hysterectomy, lumpectomy, deviated septum repair, knee surgery. ALLERGIES: ASPIRIN. FAMILY HISTORY: Coronary artery disease. SOCIAL HISTORY: She does not drink or take drugs. She does smoke. She is . She works for the [employer]. MEDICATIONS: Reviewed, please refer to the MRAD. REVIEW OF SYSTEMS: GENERAL: No history of weight change, weakness or fevers. SKIN: No bruising, hair changes or rashes. EYES: No blurred, double or loss of vision. NOSE AND THROAT: No history of nosebleeds, hoarseness or sore throat. HEART: No history of palpitations, chest pain or shortness of breath on exertion. LUNGS: Denies cough, hemoptysis, wheezing or shortness of breath. GASTROINTESTINAL: Denies changes in appetite, nausea, vomiting, diarrhea or constipation. GENITOURINARY: No history of frequency, urgency, hesitancy or nocturia. NEUROLOGIC: Denies history of numbness, tingling, tremor or weakness. PSYCHIATRIC: No history of panic, anxiety or depression. ENDOCRINE: No history of heat or cold intolerance, polyuria or polydipsia. EXTREMITIES: Denies muscle weakness, joint pain, pain on walking or stiffness. PHYSICAL EXAMINATION: VITAL SIGNS: Stable. Temperature is afebrile, pulse 62, respirations 18, blood pressure 144/91. GENERAL: She is alert, cooperative. HEART: Normal S1, S2. LUNGS: Diminished, but clear. ABDOMEN: Soft, positive bowel sounds. EXTREMITIES: Trace edema. SKIN: No rashes. PSYCHIATRIC: She is anxious. VASCULAR: Good capillary refill. ENDOCRINE: No thyromegaly. LYMPHATICS: No cervical nodes. HEMATOPOIETIC: No bruising. LABORATORY DATA: White count 12, hemoglobin 11, platelets 351. Electrolytes normal other than a mag of 1.5 and a calcium of 8.4. Troponin is 0. EKG shows sinus rhythm. ASSESSMENT AND PLAN: Chest pain, rule out coronary disease. The patient has been admitted. We will check serial enzymes, serial EKGs, echocardiogram. We have ordered a stress test. We have consulted Cardiology. Continue home medicines. MARY CHEEMA DO DR: JULES/radames JOB#: [id number] / [id number]
[2016-05-09 04:40] LABS: BASO # 0.1 x10^3/uL (0.0-0.2); BASO % 1 % (0-3); EOS % 3 % (0-3); HEMATOCRIT 29.3 % (36.0-47.0); HEMOGLOBIN 9.6 g/dL (12.0-15.5); LYMPH # 2.8 x10^3/uL (1.0-4.8); LYMPH % 37 % (24-48); MEAN CORPUSCULAR HEMOGLOBIN 29 pg (25-35); MEAN CORPUSCULAR HGB CONC 33 g/dL (31-37); MEAN CORPUSCULAR VOLUME 87 fL (79-100); MONO % 8 % (0-9); NEUT % 51 % (31-73); PLATELET COUNT 270 x10^3/uL (140-400); RED BLOOD COUNT 3.35 x10^6/uL (3.50-5.40); WHITE BLOOD COUNT 7.4 x10^3/uL (4.0-11.0)
[2016-05-09 05:01] LABS: CREATININE 0.8 mg/dL (0.6-1.0); GFR 75.9; POTASSIUM 4.2 mmol/L (3.5-5.1)
[2016-05-09 07:00] VITALS: BP 104/68
[2016-05-09] MEDS ORDERED: LEVOTHYROXINE 25 MCG TABLET. PO SCH (07:30)
[2016-05-09] MEDS: METFORMIN 500 MG TABLET. PO SCH (07:50)
[2016-05-09] MEDS: OXYBUTYNIN CHLORIDE 5 MG TABLET PO SCH (09:00)
[2016-05-09 10:18] VITALS: BP 105/68
--- NOTE | 2016-05-09 11:31 | PDOC ---
PROGRESS NOTES Chief Complaint Chief Complaint 1. Chest Pain 2. Hyperlipidemia 3. Hypertension 4. Bronchitis 5. GERD 6. Smoking History History of Present Illness History of Present Illness Patient awake, alert, and oriented when seen and evaluated this AM. Pt's present and at bedside. Pt states that she is feeling better and the admission CP has since resolved. All questions and concerns addressed and answered. Smoking cessation counseling given Vitals Vitals Vital Signs Date Time Temp Pulse Resp B/P Pulse Ox O2 Delivery O2 Flow Rate FiO2 05/09/16 10:18 98.1 67 20 105/68 98 Room Air 98.1 Physical Exam General: Alert, Oriented X3, Cooperative, No acute distress Heart: Regular rate, Normal S1, Normal S2, Other (2/6 systolic murmur to DIMAS border) Lungs: Clear Abdomen: Normal bowel sounds, Soft, No tenderness, No hepatosplenomegaly Extremities: No cyanosis, No edema, Normal pulses Skin: No breakdown, No significant lesion Labs LABS Laboratory Tests Test 05/08/16 12:40 05/08/16 16:00 05/08/16 17:15 05/08/16 20:30 Troponin I Quantitative < 0.017ng/mL (0.000-0.055) D-Dimer (Ania) < 0.27ug/mlFEU (0.00-0.50) Glucose (Fingerstick) 99mg/dL (70-99) 96mg/dL (70-99) Test 05/09/16 04:23 05/09/16 08:06 White Blood Count 7.4x10^3/uL (4.0-11.0) Red Blood Count 3.35x10^6/uL (3.50-5.40) Hemoglobin 9.6g/dL (12.0-15.5) Hematocrit 29.3% (36.0-47.0) Mean Corpuscular Volume 87fL (79-100) Mean Corpuscular Hemoglobin 29pg (25-35) Mean Corpuscular Hemoglobin Concent 33g/dL (31-37) Red Cell Distribution Width 15.0% (11.5-14.5) Platelet Count 270x10^3/uL (140-400) Neutrophils (%) (Auto) 51% (31-73) Lymphocytes (%) (Auto) 37% (24-48) Monocytes (%) (Auto) 8% (0-9) Eosinophils (%) (Auto) 3% (0-3) Basophils (%) (Auto) 1% (0-3) Neutrophils # (Auto) 3.7x10^3uL (1.8-7.7) Lymphocytes # (Auto) 2.8x10^3/uL (1.0-4.8) Monocytes # (Auto) 0.6x10^3/uL (0.0-1.1) Eosinophils # (Auto) 0.3x10^3/uL (0.0-0.7) Basophils # (Auto) 0.1x10^3/uL (0.0-0.2) Sodium Level 141mmol/L (136-145) Potassium Level 4.2mmol/L (3.5-5.1) Chloride Level 108mmol/L (98-107) Carbon Dioxide Level 26mmol/L (21-32) Anion Gap 7 (6-14) Blood Urea Nitrogen 11mg/dL (7-20) Creatinine 0.8mg/dL (0.6-1.0) Estimated GFR (Cockcroft-Gault) 75.9 Glucose Level 111mg/dL (70-99) Calcium Level 8.0mg/dL (8.5-10.1) Glucose (Fingerstick) 100mg/dL (70-99) Review of Systems Review of Systems Patient complaint of hunger Patient complaint of fatigue Assessment and Plan Assessmemt and Plan Problems Medical Problems: (1) Chest pain Status: Acute (2) Chest pain Status: Acute (3) History of tobacco use Status: Acute (4) Hyperlipidemia Status: Acute Assessment: 1. Chest Pain 2. Hyperlipidemia 3. Hypertension 4. Bronchitis 5. GERD 6. Smoking History Plan: Continue to monitor the patient per floor protocol Continue home meds Daily labs PTOT MY RN Smoking cessation counseling addressed and given Possible DC later when ok with subspecialty Problems: Comment Review of Relevant I have reviewed the following items anne (where applicable) has been applied. Labs Laboratory Tests Test 05/07/16 21:30 05/08/16 06:31 05/08/16 12:40 05/08/16 16:00 White Blood Count 12.4x10^3/uL (4.0-11.0) Red Blood Count 3.99x10^6/uL (3.50-5.40) Hemoglobin 11.4g/dL (12.0-15.5) Hematocrit 34.8% (36.0-47.0) Mean Corpuscular Volume 87fL (79-100) Mean Corpuscular Hemoglobin 29pg (25-35) Mean Corpuscular Hemoglobin Concent 33g/dL (31-37) Red Cell Distribution Width 15.3% (11.5-14.5) Platelet Count 351x10^3/uL (140-400) Neutrophils (%) (Auto) 56% (31-73) Lymphocytes (%) (Auto) 35% (24-48) Monocytes (%) (Auto) 6% (0-9) Eosinophils (%) (Auto) 2% (0-3) Basophils (%) (Auto) 1% (0-3) Neutrophils # (Auto) 6.9x10^3uL (1.8-7.7) Lymphocytes # (Auto) 4.3x10^3/uL (1.0-4.8) Monocytes # (Auto) 0.7x10^3/uL (0.0-1.1) Eosinophils # (Auto) 0.3x10^3/uL (0.0-0.7) Basophils # (Auto) 0.2x10^3/uL (0.0-0.2) Sodium Level 134mmol/L (136-145) 138mmol/L (136-145) Potassium Level 3.6mmol/L (3.5-5.1) 4.2mmol/L (3.5-5.1) Chloride Level 98mmol/L (98-107) 106mmol/L (98-107) Carbon Dioxide Level 22mmol/L (21-32) 22mmol/L (21-32) Anion Gap 14 (6-14) 10 (6-14) Blood Urea Nitrogen 18mg/dL (7-20) 13mg/dL (7-20) Creatinine 1.2mg/dL (0.6-1.0) 0.9mg/dL (0.6-1.0) Estimated GFR (Cockcroft-Gault) 47.6 66.3 Glucose Level 150mg/dL (70-99) 91mg/dL (70-99) Calcium Level 8.9mg/dL (8.5-10.1) 8.4mg/dL (8.5-10.1) Magnesium Level 1.3mg/dL (1.8-2.4) 1.5mg/dL (1.8-2.4) Total Bilirubin 0.2mg/dL (0.2-1.0) Direct Bilirubin < 0.1mg/dL (0.0-0.2) Aspartate Amino Transf (AST/SGOT) 18U/L (15-37) Alanine Aminotransferase (ALT/SGPT) 15U/L (14-59) Alkaline Phosphatase 72U/L (46-116) Creatine Kinase 51U/L (26-192) Creatine Kinase MB (Mass) < 0.5ng/mL (0.0-3.6) Creatine Kinase MB Relative Index % (0-4) Troponin I Quantitative < 0.017ng/mL (0.000-0.055) < 0.017ng/mL (0.000-0.055) < 0.017ng/mL (0.000-0.055) AS-Gnc-L-Type Natriuretic Peptide 86pg/mL (0-124) Total Protein 7.3g/dL (6.4-8.2) Albumin 3.5g/dL (3.4-5.0) Lipase 197U/L (73-393) Triglycerides Level 103mg/dL (0-150) Cholesterol Level 147mg/dL (0-200) LDL Cholesterol, Calculated 88mg/dL (0-100) VLDL Cholesterol, Calculated 21mg/dL (0-40) HDL Cholesterol 38mg/dL (40-60) Cholesterol/HDL Ratio 3.9 Thyroid Stimulating Hormone (TSH) 0.438uIU/mL (0.358-3.74) D-Dimer (Ania) < 0.27ug/mlFEU (0.00-0.50) Test 05/08/16 17:15 05/08/16 20:30 05/09/16 04:23 05/09/16 08:06 Glucose (Fingerstick) 99mg/dL (70-99) 96mg/dL (70-99) 100mg/dL (70-99) White Blood Count 7.4x10^3/uL (4.0-11.0) Red Blood Count 3.35x10^6/uL (3.50-5.40) Hemoglobin 9.6g/dL (12.0-15.5) Hematocrit 29.3% (36.0-47.0) Mean Corpuscular Volume 87fL (79-100) Mean Corpuscular Hemoglobin 29pg (25-35) Mean Corpuscular Hemoglobin Concent 33g/dL (31-37) Red Cell Distribution Width 15.0% (11.5-14.5) Platelet Count 270x10^3/uL (140-400) Neutrophils (%) (Auto) 51% (31-73) Lymphocytes (%) (Auto) 37% (24-48) Monocytes (%) (Auto) 8% (0-9) Eosinophils (%) (Auto) 3% (0-3) Basophils (%) (Auto) 1% (0-3) Neutrophils # (Auto) 3.7x10^3uL (1.8-7.7) Lymphocytes # (Auto) 2.8x10^3/uL (1.0-4.8) Monocytes # (Auto) 0.6x10^3/uL (0.0-1.1) Eosinophils # (Auto) 0.3x10^3/uL (0.0-0.7) Basophils # (Auto) 0.1x10^3/uL (0.0-0.2) Sodium Level 141mmol/L (136-145) Potassium Level 4.2mmol/L (3.5-5.1) Chloride Level 108mmol/L (98-107) Carbon Dioxide Level 26mmol/L (21-32) Anion Gap 7 (6-14) Blood Urea Nitrogen 11mg/dL (7-20) Creatinine 0.8mg/dL (0.6-1.0) Estimated GFR (Cockcroft-Gault) 75.9 Glucose Level 111mg/dL (70-99) Calcium Level 8.0mg/dL (8.5-10.1) Laboratory Tests Test 05/08/16 12:40 05/08/16 16:00 05/08/16 17:15 05/08/16 20:30 Troponin I Quantitative < 0.017ng/mL (0.000-0.055) D-Dimer (Ania) < 0.27ug/mlFEU (0.00-0.50) Glucose (Fingerstick) 99mg/dL (70-99) 96mg/dL (70-99) Test 05/09/16 04:23 05/09/16 08:06 White Blood Count 7.4x10^3/uL (4.0-11.0) Red Blood Count 3.35x10^6/uL (3.50-5.40) Hemoglobin 9.6g/dL (12.0-15.5) Hematocrit 29.3% (36.0-47.0) Mean Corpuscular Volume 87fL (79-100) Mean Corpuscular Hemoglobin 29pg (25-35) Mean Corpuscular Hemoglobin Concent 33g/dL (31-37) Red Cell Distribution Width 15.0% (11.5-14.5) Platelet Count 270x10^3/uL (140-400) Neutrophils (%) (Auto) 51% (31-73) Lymphocytes (%) (Auto) 37% (24-48) Monocytes (%) (Auto) 8% (0-9) Eosinophils (%) (Auto) 3% (0-3) Basophils (%) (Auto) 1% (0-3) Neutrophils # (Auto) 3.7x10^3uL (1.8-7.7) Lymphocytes # (Auto) 2.8x10^3/uL (1.0-4.8) Monocytes # (Auto) 0.6x10^3/uL (0.0-1.1) Eosinophils # (Auto) 0.3x10^3/uL (0.0-0.7) Basophils # (Auto) 0.1x10^3/uL (0.0-0.2) Sodium Level 141mmol/L (136-145) Potassium Level 4.2mmol/L (3.5-5.1) Chloride Level 108mmol/L (98-107) Carbon Dioxide Level 26mmol/L (21-32) Anion Gap 7 (6-14) Blood Urea Nitrogen 11mg/dL (7-20) Creatinine 0.8mg/dL (0.6-1.0) Estimated GFR (Cockcroft-Gault) 75.9 Glucose Level 111mg/dL (70-99) Calcium Level 8.0mg/dL (8.5-10.1) Glucose (Fingerstick) 100mg/dL (70-99) Medications Current Medications Aspirin (Children'S Aspirin) 243 mg 1X ONCE PO Last administered on 05/07/16 22:50; Start 05/07/16 at 23:00; Stop 05/07/16 at 23:01; Status DC Fentanyl Citrate 50 mcg 50 mcg PRN Q15MIN PRN IV PAIN GREATER THAN 3/10; Start 05/07/16 at 22:30; Stop 05/08/16 at 02:00; Status DC Sodium Chloride (Iv Sodium Chloride 0.9% 1000ml Bag) 1,000 ml @ 1,000 mls/hr Q1H IV Last administered on 05/07/16 22:49; Start 05/07/16 at 23:00; Stop at 23:59; Status DC Ondansetron HCl (Zofran) 4 mg 1X ONCE IV ; Start 05/07/16 at 23:00; Stop at 23:01; Status DC Multi-Ingredient Mouthwash/Gargle (Gi Cocktail Single Dose) 15 ml 1X ONCE SWSW Last administered on 05/07/16 22:49; Start 05/07/16 at 23:00; Stop 05/07/16 at 23:01; Status DC Ondansetron HCl (Zofran) 4 mg PRN Q8HRS PRN IV NAUSEA/VOMITING; Start 05/08/16 at 00:15; Stop 05/09/16 at 00:14; Status DC Fentanyl Citrate 50 mcg 50 mcg PRN Q2HR PRN IV SEVERE PAIN; Start 05/08/16 at 00 :15; Stop 05/09/16 at 00:14; Status DC Sodium Chloride (Iv Sodium Chloride 0.9% 1000ml Bag) 1,000 ml @ 100 mls/hr Q10H IV Last administered on 05/08/16 20:19; Start 05/08/16 at 00:07; Stop at 00:06; Status DC Regadenoson 0.4 mg 0.4 mg 1X ONCE IV Last administered on 05/08/16 11:53; Start 05/08/16 at 10:45; Stop 05/08/16 at 10:46; Status DC Magnesium Sulfate/ Dextrose (Magnesium Sulfate PREMIX 2GM) 50 ml @ 25 mls/hr 1X ONCE IV Last administered on 05/08/16 14:50; Start 05/08/16 at 12:00; Stop 05/08/16 at 13:59; Status DC Clonazepam (Klonopin) 0.5 mg DAILY PO ; Start 05/08/16 at 12:00; Stop 05/08/16 at 17:05; Status DC Levothyroxine Sodium (Synthroid) 25 mcg DAILYAC PO Last administered on 07:50; Start 05/09/16 at 07:30 Metformin HCl (Glucophage) 500 mg BIDWMEALS PO Last administered on 05/09/16 07 :50; Start 05/08/16 at 17:00 Oxybutynin Chloride (Ditropan) 5 mg BID PO Last administered on 05/08/16 20:20 ; Start 05/08/16 at 21:00 Simvastatin (Zocor) 20 mg QHS PO Last administered on 05/08/16 20:20; Start 05/08/16 at 21:00 Clonazepam (Klonopin) 1 mg QHS PO Last administered on 05/08/16 20:20; Start at 21:00 Active Scripts Active Reported Synthroid (Levothyroxine Sodium) 25 Mcg Tablet 25 Mcg PO DAILYAC Metformin Hcl 500 Mg Tablet 500 Mg PO BIDWMEALS Simvastatin 20 Mg Tablet 20 Mg PO DAILY Oxybutynin Chloride 5 Mg Tablet 5 Mg PO BID Klonopin (Clonazepam) 0.5 Mg Tablet 0.5 Mg PO DAILY Ritalin-Sr (Methylphenidate Hcl) 20 Mg Tablet.er 20 Mg PO Vitals/I & O Vital Sign - Last 24 Hours 05/08/16 05/08/16 05/08/16 05/08/16 15:18 18:21 18:22 18:22 Temp 98.1 98.1 Pulse 82 70 79 81 Resp 18 B/P 116/62 125/71 111/78 125/78 Pulse Ox 97 99 98 98 O2 Delivery Room Air 05/08/16 05/08/16 05/08/16 05/09/16 20:00 20:09 22:39 07:00 Temp 98.1 97.7 97.6 98.1 97.7 97.6 Pulse 76 69 63 Resp 18 18 20 B/P 108/78 97/65 104/68 Pulse Ox 98 99 94 O2 Delivery Room Air Room Air Room Air Room Air 05/09/16 05/09/16 07:36 10:18 Temp 98.1 98.1 Pulse 67 Resp 20 B/P 105/68 Pulse Ox 98 O2 Delivery Room Air Room Air Intake and Output 05/08/16 05/08/16 05/09/16 15:00 23:00 07:00 Intake Total 1000 ml Balance 1000 ml MARY CHEEMA III DO May 09, 2016 11:31
--- NOTE | 2016-05-21 10:20 | DS ---
DATE OF DISCHARGE: 05/09/2016 ADMISSION DIAGNOSIS: Chest pain. DISCHARGE DIAGNOSIS: Atypical chest pain, suspect reflux. HOSPITAL COURSE: The patient is a pleasant middle-aged female presented with chest pain. We admitted the patient, did serial enzymes, serial EKGs, consulted Cardiology. Stress test was negative. We discharged to home. DISPOSITION: Home. ACTIVITY: As tolerated. DIET: Low sodium. MEDICATIONS: Please see the MRAD. TOTAL TIME: 34 minutes. MARY CHEEMA DO DR: JULES/radames JOB#: [id number] / [id number]
== END 2016-05-09 13:29 | disposition home or self-care (01) | DRG 391 ==
LOC: ER 21:14 → 5 SOUTH 22:26
PROVIDERS: ADMIT Internal Medicine; ATTEND Internal Medicine
DX: K21.9 Gastro-esophageal reflux disease without esophagitis (principal); N17.1 Acute kidney failure with acute cortical necrosis; E87.1 Hypo-osmolality and hyponatremia; J40 Bronchitis, not specified as acute or chronic; J45.909 Unspecified asthma, uncomplicated; E83.42 Hypomagnesemia; E11.9 Type 2 diabetes mellitus without complications; E03.9 Hypothyroidism, unspecified; F17.200 Nicotine dependence, unspecified, uncomplicated; I10 Essential (primary) hypertension; E78.5 Hyperlipidemia, unspecified; E78.00 Pure hypercholesterolemia, unspecified; G47.10 Hypersomnia, unspecified; M54.5 Low back pain; Z90.49 Acquired absence of other specified parts of digestive tract; Z82.49 Family history of ischemic heart disease and other diseases of the circulatory system; Z79.4 Long term (current) use of insulin; Z88.6 Allergy status to analgesic agent; Z90.710 Acquired absence of both cervix and uterus
CPT/HCPCS: 36415; 70450; 71010; 78452; 80048; 80061; 80076; 82553; 82947; 83690; 83735; 83880; 84443; 84484; 85027; 85379; 93005; 93017; 93306; 96360; 96374; 96375; 96376; 99406; A9500; J2785; J7030; J7060; 99285-25

== ENCOUNTER → 2016-06-20 | Outpatient (CLI) | payer BC ==
--- NOTE | 2016-06-20 16:21 | KCIC ---
PROCEDURE Bilateral digital mammogram with CAD HISTORY Routine screening TECHNIQUE Bilateral digital routine views were obtained with computer-aided detection. COMPARISON June 14, 2014 FINDINGS Density B: Mixed fatty and fibroglandular tissue. There is no suspicious mass, calcifications or areas of architectural distortion. IMPRESSION No suspicious findings. [Recommend routine screening mammography in one year.] This study was interpreted with the benefit of Computerized Aided Detection (CAD). Mammography is not 100% sensitive in detecting breast cancer. Therefore, a self breast exam and a clinical breast exam are very important. A negative mammogram does not negate a clinically suspicious finding and should not result in a delay in biopsying a clinically suspicious abnormality. BI-RADS category 1: Negative. Electronically signed by: Sohail Lawrence MD (Jun 20, 2016 16:19:12)
== END | disposition home or self-care (01) ==
LOC: KCIC MAMMO 14:44
PROVIDERS: ATTEND Family Medicine
DX: Z12.31 Encounter for screening mammogram for malignant neoplasm of breast (principal)
CPT/HCPCS: G0202; 77067

== ENCOUNTER → 2017-06-21 | Outpatient (CLI) | payer BC | END | disposition home or self-care (01) | LOC: KCIC MAMMO 11:55 | DX: Z12.31 Encounter for screening mammogram for malignant neoplasm of breast (principal) | CPT/HCPCS: 77063; 77067 ==

== ENCOUNTER → 2017-07-15 | Outpatient (CLI) | payer BC | END | disposition home or self-care (01) | LOC: KCIC US 07:51 | DX: M47.817 Spondylosis without myelopathy or radiculopathy, lumbosacral region (principal); M51.37 Other intervertebral disc degeneration, lumbosacral region; N20.0 Calculus of kidney | CPT/HCPCS: 72110; 76770 ==

== ENCOUNTER → 2019-04-24 | Outpatient (CLI) | payer BC ==
[~2019-04-24] MED LIST changes: -LEVO25TA2 PO; +LEVO25TA55 PO; +METF500T16 PO; -METF500T4 PO; +OXYB5TAB10 PO; -OXYB5TAB7 PO; +SIMV20TA18 PO; -SIMV20TA3 PO
--- NOTE | 2019-04-24 17:12 | KCIC ---
Bilateral digital screening mammograms with 3-D tomosynthesis: Reason for examination: Routine screening. Comparison is made to previous studies dated 06/21/2017 and 06/20/2016. Bilateral mammograms in CC and oblique projections were obtained with 2-D imaging and 3-D tomosynthesis imaging on a Siemens Inspiration unit and reviewed on the workstation. Interpretation was made with the benefit of CAD. The skin and nipples show no abnormalities. No abnormal axillary lymph nodes are seen. The breast parenchyma shows scattered fatty and fibroglandular density. (Breast density: Category B.) There are no dominant masses, suspicious calcifications or architectural distortion. Benign calcifications are present. Impression: No evidence of malignancy. Recommend routine screening. BI-RAD Category 2: Benign. "Our facility is accredited by the [employer] Mammography [employer]." This patient's information has been entered into a reminder system for the patient to be notified with the results of her examination and a target date for the next mammogram. Electronically signed by: Alana Bullard MD (04/24/2019 5:09 PM) [id number]
== END | disposition home or self-care (01) ==
LOC: KCIC MAMMO 14:34
PROVIDERS: ATTEND Family Medicine
DX: Z12.31 Encounter for screening mammogram for malignant neoplasm of breast (principal); N64.89 Other specified disorders of breast
CPT/HCPCS: 77063; 77067

== ENCOUNTER → 2021-02-09 | Outpatient (CLI) | payer BC ==
--- NOTE | 2021-02-09 12:04 | KCIC ---
Bilateral digital screening mammograms with 3-D tomosynthesis: Reason for examination: Routine screening. Comparison is made to previous studies dated back to 06/14/2014. Bilateral mammograms in CC and oblique projections were obtained with 2-D imaging and 3-D tomosynthes is imaging on a Siemens Inspiration unit and reviewed on the workstation. Interpretation was made wit h the benefit of CAD. The skin and nipples show no abnormalities. No abnormal axillary lymph nodes are seen. The breast par enchyma shows scattered fatty and fibroglandular density. (Breast density: Category B.) There are no dominant masses, suspicious calcifications or architectural distortion. Benign calcifications are pre sent. Impression: No evidence of malignancy. Recommend routine screening. BI-RAD Category 2: Benign. "Our facility is accredited by the [employer] Mammography [employer]." This patient's information has been entered into a reminder system for the patient to be notified wit h the results of her examination and a target date for the next mammogram. Electronically signed by: Alana Bullard MD (02/09/2021 12:02 PM) [id number]
== END ==
LOC: KCIC MAMMO 09:39
PROVIDERS: ATTEND Family Medicine
DX: Z12.31 Encounter for screening mammogram for malignant neoplasm of breast (principal)
CPT/HCPCS: 77063; 77067